=== PATIENT | female | born 1940 | race Caucasian/White ===

== ENCOUNTER 2016-11-30 11:43 | Emergency (ER) | payer OTHER, MEDICARE ==
[2016-11-30 12:01] VITALS: RESP 14
[2016-11-30 13:01] LABS: % IMMATURE GRANULYOCYTES 0.7 % (0.0-1.1); ABSOLUTE IMMATURE GRANULOCYTES 0.13 10^3/uL (0.00-0.10); ADD DIFF? NO; ADD MORPH? NO; ADD SCAN? NO; ATYPICAL LYMPHOCYTE FLAG 0 (0-99); FRAGMENT RBC FLAG 0 (0-99); HEMATOCRIT 37.1 % (38.0-47.0); LEFT SHIFT FLG 0 (0-99); LIPEMIA HEMOLYSIS FLAG 80 (0-99); MEAN CELL HEMOGLOBIN 26.5 pg (27.9-34.1); MEAN CELL HEMOGLOBIN CONCENTR. 32.3 g/dL (32.4-36.7); MEAN CELL VOLUME 81.9 fL (81.5-99.8); MEAN PLATELET VOLUME 11.4 fL (8.7-11.7); PLATELET CLUMPS FLAG 0 (0-99); PLATELET COUNT 324 10^3/uL (150-400); RED BLOOD CELL COUNT 4.53 10^6/uL (4.18-5.33); RED CELL DISTRIBUTION WIDTH 14.8 % (11.5-15.2)
--- NOTE | 2016-11-30 13:13 | EDPHY ---
H & P Stated Complaint: L EYE DROOP SINCE YESTERDAY Time Seen by Provider: 11/30/16 12:00 HPI/ROS: CHIEF COMPLAINT: UTI, left eyelid drooping HISTORY OF PRESENT ILLNESS: The patient is a 76 y/o female arriving from her urologist's office due to UTI and new left eye drooping. She's had intermittent UTIs "for years." She began feeling more weak than normal about 1 week ago. She has associated with intermittent dysuria, vomiting, and fever. She saw her urologist just prior to arrival and was diagnosed with the urinary tract infection. She was placed on an unknown antibiotic. She recently had a urinary tract infection requiring IV antibiotics. Regarding her eye she thinks she stuck a piece of cactus in it. She did not notice the eyelid drooping until her urologist mentioned it this morning. She cannot tell me how long it's been drooping, but says "not long." She is reluctant to talk about her eyelid drooping. She denies trouble swallowing or eating, vision changes, unilateral weakness. REVIEW OF SYSTEMS: Constitutional: see HPI Eyes: No visual changes ENT: No sore throat Respiratory: No cough, no shortness of breath Cardiac: No chest pain Gastrointestinal: see HPI Genitourinary: see HPI Musculoskeletal: No leg pain or swelling Skin: No rash Neurological: see HPI Psychiatric: depression related to 's - Personal History Current Tetanus/Diphtheria Vaccine: No Current Tetanus Diphtheria and Acellular Pertussis (TDAP): No Tetanus Vaccine Date: allergic to tet - Medical/Surgical History PMH: PMH includes: 1. Chronic UTIs. Admitted 10/19/16 for pseudomonas UTI, required Zosyn and PICC line. 2. Hypertension 3. History of PE - Pradaxa 4. Diabetes 5. Hypothyroidism Prior medical records reviewed including admission 10/19/16 for UTI. Hx Asthma: No Hx Chronic Respiratory Disease: No Hx Diabetes: Yes Hx Cardiac Disease: Yes Hx Renal Disease: No Hx Cirrhosis: No Hx Alcoholism: No Hx HIV/AIDS: No Hx Splenectomy or Spleen Trauma: No Other PMH: depression, irreg heart rate, HTN, chronic UTI's, DM, hypothyroidism , HYSTERECTOMY, DVT, PE, MINI-STROKE - Social History Smoking Status: Former smoker Additional Social History: Urologist: Dr. Naidu from stroke 4 years ago. - Physical Exam Exam: General Appearance: Alert, no distress Eyes: Pupils equal and round, no conjunctival pallor or injection, EOMI ENT, Mouth: Mucous membranes moist Neck: Normal inspection Respiratory: Lungs are clear to auscultation Cardiovascular: Regular rate and rhythm Gastrointestinal: Abdomen is soft and non- tender Neurological: A&O, left eyelid droop, cranial nerves otherwise intact, motor 5/ 5 in all extremities, sensory intact to light touch Skin: Warm and dry, no rash Extremities: Nontender, no pedal edema Psychiatric: Flat affect Constitutional: Initial Vital Signs Temperature (C) 36.4 C 11/30/16 11:44 Heart Rate 89 11/30/16 11:44 Respiratory Rate 14 11/30/16 11:44 Blood Pressure 131/83 H 11/30/16 11:44 O2 Sat (%) 95 11/30/16 11:44 O2 Delivery Mode Room Air Allergies/Adverse Reactions: tetanus toxoid, adsorbed Allergy (Intermediate, Verified 10/26/15 12:35) local reaction morphine Allergy (Mild, Verified 10/26/15 12:35) Itching Home Medications: Medication Instructions Recorded DULoxetine [Cymbalta 30 MG (*)] 30 mg PO DAILY 10/19/16 Estrogens,Conjugated [Premarin 0.3 0.3 mg PO DAILY 10/19/16 MG (*)] Hydrocodone/Acetaminophen [[place] 1 each PO BID 10/19/16 5/325 (*)] LORazepam [Ativan (*)] 1 mg PO BID PRN 10/19/16 Levothyroxine [Synthroid 112 mcg 112 mcg PO DAILY06 10/19/16 (*)] Lisinopril [Zestril 40 mg (*)] 40 mg PO DAILY 10/19/16 Potassium Cl [Klor-Con 10 meq (RX)] 10 meq PO DAILY 10/19/16 metFORMIN HCL [Glucophage 500 mg 1,000 mg PO DAILY 10/22/16 (*)] Acetaminophen [Tylenol 325mg (*)] 650 mg PO Q4HRS PRN #0 tab 10/23/16 Medical Decision Making - Diagnostics EKG Interpretation: The 12 lead EKG was interpreted by myself. Sinus rhythm rate 71 with left axis deviation. See hard copy and/or "tracemaster" electronic copy for interpretation. ED Course/Re-evaluation: This patient presents with a new left eyelid droop, with an otherwise normal neurologic exam. This may represent a tiny CVA and will require MRI for further diagnostic evaluation. A CT scan of the brain would be unlikely to find the answer to this new problem. IV established. Labs drawn including CBC, CHEM, troponin. EKG and head MRI ordered. Will not repeat UA as her urologist required a cath to obtain a sample and has already sent it for culture. She reports to the RN that the eyelid droop is chronic for the last 3 years since her facelift. I discussed this with the patient an she has changed her clinical history and now tells me that the left eyelid droop has been ongoing for a few years, sometimes more prominent and sometimes less prominent. She refuses brain MRI, IV antibiotics, and admission. I advised her she may have had a stroke and leaving without further investigation of her symptoms is risky. She understands and now states that this is not a new problem. It is unclear whether she is telling me the truth or simply wants to leave the emergency department. In any case, she is a competent decision maker and clearly understands the risks and benefits of this decision. In addition, I have suggested that she receive IV antibiotics for her urinary tract infection. Her recent urine cultures have been complicated and the infections have required IV antibiotics. She refuses IV antibiotics. She will take oral antibiotics and will await the urine culture. She will follow up with her urologist for her urine culture and continue the antibiotic he prescribed. Return precautions given. Differential Diagnosis: Differential diagnosis includes does not limited to CVA, TIA, intracranial hemorrhage, pyelonephritis, severe sepsis. - Data Points Laboratory Results: Laboratory Results 11/30/16 12:50 11/30/16 12:50 Departure - Departure Disposition: Home, Routine, Self-Care Clinical Impression: left eyelid droop Urinary tract infectious disease Qualifiers: Urinary tract infection type: acute cystitis Hematuria presence: without hematuria Qualifier Code: (N30.00) Acute cystitis without hematuria Condition: Good Instructions: Urinary Tract Infection in Women (ED) Additional Instructions: Take antibiotics prescribed by Dr. Aceves as prescribed. Return to the ED for any worsening of condition. Referrals: Arian Hurtado MD [Primary Care Provider] - As per Instructions Martin Aceves MD [Medical Doctor] - As per Instructions Report Scribed for: Sherrie Cheney Report Scribed by: Izzy Felix Date of Report: 11/30/16 Time of Report: 12:39 Physician Review and Approval Statement: 11/30/16 12:39 Portions of this note were transcribed by a medical laboratory assistant. I personally performed a history, physical exam, medical decision making, and confirmed accuracy of information the transcribed note.
[2016-11-30 13:17] LABS: ANION GAP 12 mEq/L (8-16); CALCIUM 8.8 mg/dL (8.5-10.4); CARBON DIOXIDE 25 mEq/l (22-31); CHLORIDE 97 mEq/L (97-110); GLOMERULAR FILTRATION RATE 54; GLUCOSE 240 mg/dL (70-100); POTASSIUM 4.6 mEq/L (3.5-5.2); SODIUM 134 mEq/L (134-144)
[2016-11-30 13:28] LABS: TROPONIN I < 0.012 ng/mL (0-0.034)
--- NOTE | 2016-11-30 13:29 | CPEKG ---
Heart Rate: 71 RR Interval: 845 P-R Interval: 140 QRSD Interval: 82 QT Interval: 400 QTC Interval: 435 P [place]: 26 QRS [place]: -36 T Wave [place]: 9 EKG Severity - OTHERWISE NORMAL ECG - EKG Impression: SINUS RHYTHM EKG Impression: LEFT AXIS DEVIATION Electronically Signed By: Sherrie Cheney 30-Nov-2016 14:30:09
[2016-11-30 14:00] VITALS: BP 128/78; PULSE 78; TEMP 99; O2SAT 96
== END 2016-11-30 13:59 | disposition home or self-care (01) ==
DX: N30.00 Acute cystitis without hematuria (principal); H02.402 Unspecified ptosis of left eyelid; I10 Essential (primary) hypertension; E11.9 Type 2 diabetes mellitus without complications; Z87.891 Personal history of nicotine dependence

== ENCOUNTER 2016-11-30 20:29 | Inpatient (IN) | payer OTHER, MEDICARE ==
--- NOTE | 2016-11-30 21:17 | EDPHY ---
[id number], dysuria, vomiting and fever. Patient was seen here earlier today after being referred from Dr. Aceves's office with urinary tract infection. She has a history of intermittent UTIs for in the past. She has had increasing weakness for the past week with increasing foul-smelling urine per her daughter. Her urologist mention a left eyelid droop this morning, however per the patient's daughter this is a chronic condition. Patient was seen earlier today by Dr. Cheney and refused admission at that time. Daughter came home this evening and was unable to get her out of bed secondary to generalized weakness. Of note Dr. Aceves disorder current antibiotics and send her urine for culture. It was noted that she had a white count of 19.7 this morning with a left shift. ROS: 10 point Review of Systems is negative except as noted in the HPI. Physical exam: Gen: Awake, Alert, frail-appearing HEENT: Nose: no rhinorrhea Eyes: PERRLA, EOMI Mouth: Dry mucosa Neck: Supple, no JVD Chest: nontender, lungs clear to auscultation Heart: S1, S2 normal, no murmur Abd: Soft, mild suprapubic tenderness to palpation, no guarding Back: no CVA tenderness, no midline tenderness Ext: no edema, non-tender Skin: no rash Neuro: CN II-XII intact, Sensation grossly intact, Strength 5/5 in bilateral upper and lower extremities ED Course: Patient meets criteria for SIRS. He I have ordered a lactic acid and blood cultures. I have noted her laboratory evaluations were earlier today with a white count of 19.8. She is tachycardic at 10:03 a.m. he. She is currently afebrile. 2129 lactic acid noted to be elevated at 3.4. She does meets criteria for severe sepsis. Her blood pressure is appropriate she is mentating appropriately. I have ordered the 30 male L p.o. kg IV bolus. Repeat lactic acid has been ordered. I have ordered 2 g of IV ceftriaxone. I have discussed with Dr. Ying Truong, hospitalist. Plan will be to admit to [facility] for further care and evaluation. - Data Points Laboratory Results: 11/30/16 21:10 VBG Lactic Acid 3.4 H mmol/L (0.7-2.1) General Time Seen by Provider: 11/30/16 20:58 Initial Vital Signs: Initial Vital Signs Temperature (C) 36.8 C 11/30/16 20:34 Heart Rate 102 H 11/30/16 20:34 Respiratory Rate 16 11/30/16 20:34 Blood Pressure 134/73 H 11/30/16 20:34 O2 Sat (%) 95 11/30/16 20:34 O2 Delivery Mode Room Air Allergies/Adverse Reactions: tetanus toxoid, adsorbed Allergy (Intermediate, Verified 10/26/15 12:35) local reaction morphine Allergy (Mild, Verified 10/26/15 12:35) Itching Home Medications: Medication Instructions Recorded DULoxetine [Cymbalta 30 MG (*)] 30 mg PO DAILY 10/19/16 Dabigatran Etexilate Mesyl 150 mg PO BID 10/19/16 [Pradaxa 150 MG (*)] Estrogens,Conjugated [Premarin 0.3 0.3 mg PO DAILY 10/19/16 MG (*)] Hydrocodone/Acetaminophen [[place] 1 each PO BID 10/19/16 5/325 (*)] LORazepam [Ativan (*)] 1 mg PO BID PRN 10/19/16 Levothyroxine [Synthroid 112 mcg 112 mcg PO DAILY06 10/19/16 (*)] Lisinopril [Zestril 40 mg (*)] 40 mg PO DAILY 10/19/16 Potassium Cl [Klor-Con 10 meq (RX)] 10 meq PO DAILY 10/19/16 metFORMIN HCL [Glucophage 500 mg 1,000 mg PO DAILY 10/22/16 (*)] Acetaminophen [Tylenol 325mg (*)] 650 mg PO Q4HRS PRN #0 tab 10/23/16 Alteplase [Cathflo Activase 2 mg 2 mg IVP PRN PRN #0 vial 10/23/16 (*)] Piperacillin/Tazo 4.5 gm/Dex 100 ml IV Q8HRS #0 bag 10/23/16 [Zosyn (Premix)] Departure - Departure Disposition: [facility] Clinical Impression: Urinary tract infectious disease, Sepsis Condition: Fair
[2016-11-30] MEDS ORDERED: NS 1,000 ML BAG *FOR SEPSIS ORDER SET ONLY IV ONE (21:30)
[2016-11-30] MEDS ORDERED: cefTRIAXone 2 GM in D5W 50 ML IV ONE (21:30)
[2016-11-30 22:21] LABS: LACGHOST ORDER
[2016-11-30] MEDS ORDERED: ONDANSETRON DISINTEGRATING 4 MG TAB PO PRN (22:30)
[2016-11-30] MEDS ORDERED: ONDANSETRON 4 MG/2 ML VIAL IVP PRN (22:30)
[2016-11-30] MEDS ORDERED: ACETAMINOPHEN 500 MG TAB PO ONE (22:31)
[2016-11-30] MEDS ORDERED: ACETAMINOPHEN 500 MG TAB ONE (22:32)
[2016-11-30] MEDS ORDERED: D50W 25 GM/50 ML SYR IVP PRN (22:35)
--- NOTE | 2016-12-01 00:25 | US ---
Renal Sonography Clinical History: 68-year-old female inpatient with sepsis and a urinary tract infection. Rule out pe rinephric abscess. Technique: A curvilinear 5 MHz transducer was used to sonographically evaluate the kidneys and the ur inary bladder. Color Doppler was used. Pre- and postvoid imaging was acquired. Comparison Studies: Renal sonography dated September 01, 2014, and CT imaging of the chest (which also i ncluded the kidneys), dated May 24, 2016. Findings: The right kidney measures 9.7 x 4.8 x 5.3 cm, and there is some mild pelvocaliectasis with a mildly prominent right extrarenal pelvis. The right renal cortex is normal, measuring 1.4 cm. Incid ental note is made of adjacent hepatic steatosis. The left kidney measures 10.9 x 7.0 x 4.5 cm, and i nitially there was some mild midpole caliectasis, although this resolved after voiding. There is a le ft extrarenal pelvis observed. The left renal cortical thickness is 1.5 cm. There is no perinephric f luid collection, or solid or cystic renal cortical mass. The urinary bladder is moderately distended, although neither ureteral jet was seen. Incidental note is made of a anterior left-sided urinary mi dder diverticulum. Impression: 1. Mild right pelvocaliectasis and mild prominence of the left ureter, without persistent calyceal di latation (ureteral jets were not seen at the level of the urinary bladder). 2. There is no perinephric abscess. 3. Smoothly-contoured ureter bladder diverticulum.
[2016-12-01] MEDS: INSULIN REGULAR HUMAN 100 UNIT/ML SC SCH ×5 (01:07→20:52)
[2016-12-01] MEDS: NS 1,000 ML IV SCH ×3 (01:18→17:36)
[2016-12-01] MEDS: PIPERACILLIN/TAZO 4.5 GM/DEX 100 ML IV SCH ×5 (01:18→23:28)
[2016-12-01] MEDS ORDERED: HYDROCODONE/APAP 5/325 TAB PO PRN (01:20)
--- NOTE | 2016-12-01 01:25 | PDGENHP ---
History and Physical - Chief Complaint Acute weakness - History of Present Illness Date of admission: 11/30/2016 Primary care provider: Dr. Hurtado Primary infectious Disease: Dr. Huffman Primary neurology: Dr. Aceves HPI: 76-year-old female presents with acute weakness characterized as inability to get out of bed with associated dysuria, vomiting, subjective fever , foul-smelling urine with onset of symptoms approximately 1 week ago. Duration has been persistent thereafter. Her weakness is reportedly worse with activity and intentional movement. She was brought to her urologist's office by her daughter on the day of this presentation, and a urinalysis and urine culture were performed. Based on those results, it was suspected that the patient had a recurrent urinary tract infection. She was then brought to [facility] Department where she refused antibiotics and refused admission. She was brought back to her home, but later in the evening her daughter noted that she was unable to get out of bed and she brought her back to [facility]. At the present time, the patient is unable to provide me with any further history. History Information - Allergies/Home Medication List Allergies/Adverse Reactions: tetanus toxoid, adsorbed Allergy (Intermediate, Verified 10/26/15 12:35) local reaction morphine Allergy (Mild, Verified 10/26/15 12:35) Itching Home Medications: DULoxetine [Cymbalta 30 MG (*)] 30 mg PO DAILY 10/19/16 [Last Taken 11/30/16] Estrogens,Conjugated [Premarin 0.3 MG (*)] 0.3 mg PO DAILY 10/19/16 [Last Taken 11/30/16] Hydrocodone/Acetaminophen [[place] 5/325 (*)] 1 each PO BID 10/19/16 [Last Taken 11/30/16] LORazepam [Ativan (*)] 1 mg PO BID PRN 10/19/16 [Last Taken 10/18/16 18:00] Levothyroxine [Synthroid 112 mcg (*)] 112 mcg PO DAILY06 10/19/16 [Last Taken ] Lisinopril [Zestril 40 mg (*)] 40 mg PO DAILY 10/19/16 [Last Taken 11/30/16] Potassium Cl [Klor-Con 10 meq (RX)] 10 meq PO DAILY 10/19/16 [Last Taken ] metFORMIN HCL [Glucophage 500 mg (*)] 1,000 mg PO DAILY 10/22/16 [Last Taken 05/11] I have personally reviewed and updated: family history, medical history, social history, surgical history - Past Medical History diabetes type 2 (Last hemoglobin A1c 8.2% in January of 2016) Additional medical history: Hypothyroidism, hypertension, pulmonary embolism (, on Pradaxa), chronic UTI (pseudomonal in September 2016, previously Klebsiella and Enterobacter), chronic left eye droop per daughter, vascular dementia, C diff in February 2014 - Surgical History Additional surgical history: Hysterectomy, hernia repair, breast reduction - Family History Additional family history: Patient denies any recent sick family contacts - Social History Smoking Status: Former smoker Alcohol Use: Occasionally Drug Use: None Additional social history: Patient retired, Currently lives with daughter. Review of Systems ROS: 10pt was reviewed & negative except for what was stated in HPI & below Constitutional: Reports: fever, weakness Gastrointestinal: Reports: vomitting Genitourinary: Reports: dysuria, other (Foul-smelling) Physical Exam Temp Pulse Resp BP Pulse Ox 36.6 C 83 14 125/68 H 93 12/01/16 01:20 12/01/16 01:20 12/01/16 01:20 12/01/16 01:20 12/01/16 01:20 Constitutional: no apparent distress, appears nourished, not in pain Eyes: other (Left lid droop, anicteric right) Ears, Nose, Mouth, Throat: hearing normal, other (Tacky mucous membranes) Cardiovascular: regular rate and rhythym, no murmur, rub, or gallop, No edema Respiratory: no respiratory distress, no rales or rhonchi, clear to auscultation Gastrointestinal: normoactive bowel sounds, soft, non-tender abdomen, no palpable masses Genitourinary: no bladder fullness, other (Bladder tenderness, no CVA tenderness ) Skin: warm, normal color, no rashes or abrasions, no fluctuance, no induration, No mottled Neurologic: other (Alert awake oriented times 0), No weakness (Motor strength 5/ 5 bilateral lower extremity), No facial droop Psychiatric: not anxious, poor insight, poor judgement, poor memory, No agitated Lab Data & Imaging Review VBG Lactic Acid 2.5 mmol/L (0.7-2.1) H 11/30/16 23:03 POC Glucose 219 mg/dL (70-100) H 12/01/16 00:21 Visualized and Interpreted EKG results: Yes EKG Interpretation: Positive for: other (Normal sinus rhythm with T-wave inversion in lead 3 and AVF with Q-waves in lead 3) Assessment & Plan Assessment: 76-year-old female presents with severe sepsis secondary to suspected recurrent urinary tract infection Plan: 1. Severe sepsis. Acute, new problem this provider, further workup indicated. Evidenced by leukocytosis plus tachycardia plus clearly identified source of infection plus evidence of end-organ failure notably lactic acidosis, resulting in autonomic dysregulation in the setting of infection -serum lactic acid remains elevated on 2nd draw, continue drawing q.2 hours until clears -order set placed in emergency department -continue IV fluids -broadened IV antibiotics -renal ultrasounds performed to rule out perinephric abscess 2. Suspected recurrent urinary tract infection. Acute, new problem this provider, further workup indicated. Evidenced by reportedly positive urinalysis plus urinary symptoms plus sepsis physiology as outlined above resulting in generalized weakness -obtain outside urinalysis and urine culture from Dr. Aceves office -obtain Infectious Disease consultation given the previous history of resistant organisms -reviewed outside records including discharge summary by Georgina Molina from 10/23 characterizing patient's most recent hospitalization for for quinolone and meropenem resistant pseudomonal UTI, received 14 days of Zosyn therapy, patient also has history of Klebsiella sensitive to Zosyn, history of Enterobacter resistant to Zosyn -place patient on Zosyn 4.5 g q.6 hours and gauge response, if patient unresponsive to this treatment, will add coverage for Enterobacter -discussed patient with Dr. Truong, she has signed out this patient to me at the end of her shift and reports that the ER reports that the patient is stable for med surge 3. Sundowning. Evidence by disorientation and poor memory in the setting of known vascular dementia -patient will have repeat cognitive Assessment by tomorrow's hospitalist and if the patient does have overt comma ongoing acute encephalopathy in the setting of toxic infection, then she will be monitored closely and documented as such 4. Acute metabolic acidosis. Secondary to lactic acid comma in the setting of combination of severe sepsis and hypovolemia, continue IV fluids and checking serum lactic acid levels 5. Diabetes mellitus type 2 with hyperglycemia. Reactive hyperglycemia in the setting of infection, placed on insulin sliding scale and reinitiate metformin tomorrow a.m. if lactic acidosis cleared 6. Hypertension. Chronic, hold patient's FRITZ inhibitor in a.m. given ongoing infection lactic acidosis Diet. Diabetic Prophylaxis. High risk patient, continue on Pradaxa Code status. Do not resuscitate per patient when she was mentating more clearly Disposition. Anticipated discharge uncertain this time, anticipated length stay is greater than 48 hours warranting inpatient admission status for severe sepsis with recurrent urinary tract infection most likely requiring IV antibiotics and Infectious Disease consultation.
[2016-12-01] MEDS: LORazepam 0.5 MG TAB PO PRN ×2 (02:00→19:45)
[2016-12-01] MEDS: traZODone 50 MG TAB PO PRN (04:02)
[2016-12-01] MEDS: MELATONIN 3 MG TAB PO PRN (04:02)
[2016-12-01] MEDS: LEVOTHYROXINE 112 MCG TAB PO SCH (06:27)
[2016-12-01 08:58] LABS: % IMMATURE GRANULYOCYTES 0.4 % (0.0-1.1); ABSOLUTE IMMATURE GRANULOCYTES 0.08 10^3/uL (0.00-0.10); ADD DIFF? NO; ADD MORPH? NO; ADD SCAN? NO; ATYPICAL LYMPHOCYTE FLAG 0 (0-99); FRAGMENT RBC FLAG 0 (0-99); HEMATOCRIT 31.6 % (38.0-47.0); HEMOGLOBIN 10.2 g/dL (12.6-16.3); LEFT SHIFT FLG 0 (0-99); LIPEMIA HEMOLYSIS FLAG 80 (0-99); MEAN CELL HEMOGLOBIN 26.6 pg (27.9-34.1); MEAN CELL HEMOGLOBIN CONCENTR. 32.3 g/dL (32.4-36.7); MEAN CELL VOLUME 82.3 fL (81.5-99.8); MEAN PLATELET VOLUME 11.4 fL (8.7-11.7); PLATELET CLUMPS FLAG 0 (0-99); PLATELET COUNT 256 10^3/uL (150-400); RED BLOOD CELL COUNT 3.84 10^6/uL (4.18-5.33)
[2016-12-01] MEDS: DULoxetine 30 MG CAP PO SCH (08:58)
[2016-12-01] MEDS ORDERED: metFORMIN HCL 500 MG TAB PO SCH (09:00)
[2016-12-01] MEDS: ESTROGENS,CONJUGATED 0.3 MG TAB PO SCH (09:06)
[2016-12-01 09:25] LABS: ALANINE AMINOTRANSFERASE 19 IU/L (9-52); ALBUMIN 2.9 g/dL (3.5-5.0); ALKALINE PHOSPHATASE 84 IU/L (38-126); ANION GAP 10 mEq/L (8-16); ASPARTATE AMINOTRANSFERASE 12 IU/L (14-46); BILIRUBIN,TOTAL 0.8 mg/dL (0.1-1.4); CALCIUM 7.9 mg/dL (8.5-10.4); CARBON DIOXIDE 23 mEq/l (22-31); CHLORIDE 105 mEq/L (97-110); GLOMERULAR FILTRATION RATE 54; GLUCOSE 202 mg/dL (70-100); MAGNESIUM 1.3 mg/dL (1.6-2.3); POTASSIUM 4.2 mEq/L (3.5-5.2); SODIUM 138 mEq/L (134-144); TOTAL PROTEIN 5.9 g/dL (6.3-8.2)
--- NOTE | 2016-12-01 12:42 | HOSPPROG ---
Hospitalist Progress Note Assessment/Plan: ASSESSMENT/PLAN: # sepsis due to UTI - no pressors needed # urinary tract infection, recurrent, multiple resistant organisms in the past - recheck urine culture knowing that she has already received Zosyn - continue empiric Zosyn - had planned in outpatient cysto, is currently declining this - has ureter/bladder diverticulum - ID consult # history of sundowning - she is clear today and understands her medical care # DM2 - hyperglycemic; follow closely # anemia - relatively chronic # hx PE - she is off anticoagulation per her report # htn - controlled, holding lisinopril for now # dvt ppx - lovenox # DNR SUBJECTIVE: Feels slightly stronger today OBJECTIVE: Vitals reviewed Comfortable, no acute distress Regular rate and rhythm, no murmurs rubs or gallops No respiratory distress, lungs clear to auscultation bilaterally; no wheezes rales or rhonchi Abdomen with normal bowel sounds, soft, mild suprapubic tenderness to palpation , nondistended LABORATORY DATA: White count [id number] IMAGING: Ultrasound reviewed, ureters/bladder diverticulum MICROBIOLOGY: Old micro reviewed, multiple organisms with different resistance patterns Objective: Vital Signs Temp Pulse Resp BP Pulse Ox 37.3 C 86 16 115/60 92 12/01/16 08:00 12/01/16 08:00 12/01/16 08:00 12/01/16 08:00 12/01/16 08:00 Laboratory Results 12/01/16 08:47 12/01/16 08:47 11/30/16 12/01/16 12/02/16 05:59 05:59 05:59 Intake Total 1999 Balance 1999 ICD10 Worksheet Patient Problems: Problems Problem Status Diagnosed Fall Acute Sepsis Acute Urinary tract infectious disease Acute
--- NOTE | 2016-12-01 14:20 | GCON ---
[f rep st] CONSULTATION INFECTIOUS DISEASE CONSULTATION DATE OF CONSULTATION: 12/01/2016 REFERRING PHYSICIAN: Simon Cornell MD REASON FOR CONSULTATION: Recurrent urinary tract infection. CHIEF COMPLAINT: Dysuria and increased urinary frequency. HISTORY OF PRESENT ILLNESS: This 76-year-old, female with a past medical history significant for recurrent urinary tract infections, hypothyroidism, and diabetes mellitus type 2, hyp ertension, pulmonary embolism, chronic left eye droop, vascular dementia, history of C difficile in A pril 2013. She recently had urinary infection as of September 2016 with E coli and Pseudomonas, which was resistant to Levaquin and meropenem. She was treated with Zosyn until November 03. She did o darwin although she states she did not really have a lot of improvement in her symptoms. She has been home now for almost 1 month, and had an acute onset of weakness developing yesterday wit h fevers and shaking chills yesterday. She had increase in urinary frequency and ongoing dysuria she saw Dr. Aceves, her urologist, yesterday who apparently performed a urinalysis and urine culture. The results of those are not available to this point. She was placed on empiric Zosyn. She had a l eukocytosis of 19,000, which is minimally improved down to 8000 today. She continues to feel weak an d not very well. She apparently had a procedure on December 12 for a cystoscopy and possible bladder biopsy. Infectious Disease is now consulted for further evaluation and opinion. REVIEW OF SYSTEMS: GENERAL: Fevers and shaking chills. HEAD: No headache. EYES: No change in vi isabell. ENT: No sore throat, difficulty swallowing, ear pain or drainage. CARDIOVASCULAR: Denies an y chest pain or rapid heartbeat. RESPIRATORY: Denies any increasing shortness of breath or producti ve cough. ABDOMEN: Denies any nausea, vomiting, abdominal pain, or diarrhea. She usually has some constipation, but denies any back pain, flank pain. : Has urinary frequency and dysuria. MUSCULO SKELETAL: Denies any joint pains or muscle aches. SKIN: Denies any rashes. Rest of 10-point review of systems is negative or as above. PAST MEDICAL HISTORY: Significant for hypertension, pulmonary embolism, hypothyroidism chronic recur rent urinary tract infections, diabetes mellitus type 2, chronic left eye droop, vascular dementia, C HF in February 2014. PAST SURGICAL HISTORY: Significant for hysterectomy, hernia repair, breast reduction. FAMILY HISTORY: Significant for diabetes mellitus. SOCIAL HISTORY: She is a former smoker. She drinks alcohol occasionally. She lives with her daught er and son-in-law. She is a retired nurse. ALLERGIES: Tetanus toxoid and morphine. PHYSICAL EXAMINATION: VITAL SIGNS: Temperature current is 37.3, pulse is 86, blood pressure is 115/ 60, respiratory rate 16, saturation 92% on room air. GENERAL: Patient is resting in bed in no acute respiratory distress. Awake, alert, oriented x3. HEENT: Head normocephalic, atraumatic. Eyes are without conjunctival injection or petechiae. Oropharynx is clear. CARDIOVASCULAR: S1, S2. Regula r rate and rhythm. RESPIRATORY: Clear to auscultation bilaterally. No rhonchi appreciated. ABDOME N: Positive bowel sounds in all quadrants. Soft, nontender, and nondistended. She has some mild te nderness on abdominal palpation. No guarding or rebound. No flank pain. MUSCULOSKELETAL: No obvio us joint effusions or pain on palpation of the joints. SKIN: No obvious rashes. LABORATORY DATA: White cell count is 18.8, hemoglobin 10.2, platelets are 256, neutrophil count is 8 1.4. Lactic acid is 2.3. Sodium 138, potassium 4.2, chloride 105, bicarbonate 23, BUN is 9, creatin ine is 1.0. AST 12, ALT 19, alkaline phosphatase 84, total bilirubin 0.8. Microbiology: Blood cult ures x2 sets are pending. Urine culture analysis by Dr. Aceves's office is pending. Abdominal and pelvic ultrasound shows mild right pelvocaliectasis and mild prominence of the left ure ter without persistent calyceal dilatation. No perinephric abscess. Normally contoured ureter. Osvaldo dder diverticulum. ASSESSMENT: 1. Sepsis, likely secondary to urinary tract infection. 2. Leukocytosis. PLAN: 1. We will repeat a urinalysis and culture here, as well, understanding that there is some limitatio n in addition because she has already received a couple doses of antibiotics. 2. We will follow up on Dr. Aceves's culture results, as well, to better direct antimicrobial ther apy. 3. Care was coordinated with the hospitalist team and her daughter, who called, concerned that she g et better and was interested in having her urinary her urologic procedure moved up sooner. The patie nt currently does not want any procedures done, at this point in time, because she feels really weak and not well, needs at least a few days of antibiotics before any procedure could be attem pted on her at the very least. 4. Would also like to make sure that her cultures are adequately addressed with her antibiotics. 5. We will have to coordinate care with her urology team, as well, going forward. These recommendations and coordination of care were discussed with the patient's daughter, who unders tands, and is in agreement to the plan of care the patient. The patient also would not like to do an y procedures for now. Care was coordinated with the hospitalist team and her patient's RN. Thank you very much for the opportunity to care for your patient in consultation. /[id number]/MODL
[2016-12-01 16:09] LABS: COLOR YELLOW; LEUKOCYTE ESTERASE,URINE 3+ (NEGATIVE); NITRITE,URINE NEGATIVE (NEGATIVE)
[2016-12-01 16:12] LABS: BACTERIA TRACE /hpf (NONE SEEN); MUCUS TRACE /lpf (NONE-1+); WBC,URINE 50-182 /hpf (0-3)
[2016-12-01] MEDS ORDERED: BISACODYL 10 MG SUPP PR PRN (17:44)
[2016-12-01] MEDS ORDERED: MAGNESIUM HYDROXIDE 30 ML UDCUP PO PRN (17:44)
[2016-12-01] MEDS ORDERED: POLYETHYLENE GLYCOL 3350 17 GM PKT PO PRN (17:44)
[2016-12-01] MEDS ORDERED: LACTULOSE 20 GM/30 ML UDCUP PO PRN (17:44)
[2016-12-01] MEDS: SENNOSIDES/DOCUSATE SODIUM TAB PO SCH (20:52)
[2016-12-01] MEDS: HYDROCODONE/APAP 5/325 TAB PO PRN (20:53)
[2016-12-02] MEDS: NS 1,000 ML IV SCH ×4 (01:22→23:18)
[2016-12-02] MEDS: traZODone 50 MG TAB PO PRN ×2 (02:18→20:55)
[2016-12-02] MEDS: ACETAMINOPHEN 325 MG TAB PO PRN ×2 (02:19→20:55)
[2016-12-02] MEDS: LEVOTHYROXINE 112 MCG TAB PO SCH (05:42)
[2016-12-02] MEDS: PIPERACILLIN/TAZO 4.5 GM/DEX 100 ML IV SCH ×4 (05:42→23:16)
[2016-12-02] MEDS: ENOXAPARIN 40 MG/0.4 ML SYR SC SCH (08:44)
[2016-12-02] MEDS: DULoxetine 30 MG CAP PO SCH (08:45)
[2016-12-02] MEDS: ESTROGENS,CONJUGATED 0.3 MG TAB PO SCH (08:45)
[2016-12-02] MEDS: SENNOSIDES/DOCUSATE SODIUM TAB PO SCH ×2 (08:45→20:54)
[2016-12-02 08:46] LABS: % IMMATURE GRANULYOCYTES 0.4 % (0.0-1.1); ABSOLUTE IMMATURE GRANULOCYTES 0.05 10^3/uL (0.00-0.10); ADD DIFF? NO; ADD MORPH? NO; ADD SCAN? NO; ATYPICAL LYMPHOCYTE FLAG 0 (0-99); FRAGMENT RBC FLAG 0 (0-99); HEMATOCRIT 30.3 % (38.0-47.0); HEMOGLOBIN 9.4 g/dL (12.6-16.3); LEFT SHIFT FLG 0 (0-99); LIPEMIA HEMOLYSIS FLAG 80 (0-99); MEAN CELL HEMOGLOBIN 26.3 pg (27.9-34.1); MEAN CELL VOLUME 84.6 fL (81.5-99.8); MEAN PLATELET VOLUME 11.7 fL (8.7-11.7); PLATELET CLUMPS FLAG 10 (0-99); PLATELET COUNT 248 10^3/uL (150-400); RED BLOOD CELL COUNT 3.58 10^6/uL (4.18-5.33); RED CELL DISTRIBUTION WIDTH 15.2 % (11.5-15.2)
[2016-12-02] MEDS: HYDROCODONE/APAP 5/325 TAB PO PRN ×2 (08:47→23:16)
[2016-12-02] MEDS: INSULIN REGULAR HUMAN 100 UNIT/ML SC SCH ×4 (08:48→20:55)
--- NOTE | 2016-12-02 11:33 | HOSPPROG ---
Hospitalist Progress Note Assessment/Plan: ASSESSMENT/PLAN: # sepsis due to UTI - no pressors needed # urinary tract infection, recurrent, multiple resistant organisms in the past - UCx as outpatient shows e. coli - sens pending - urine culture rechecked knowing that she has already received Zosyn - continue empiric Zosyn - has ureter/bladder diverticulum - need to talk to Dr Aceves on Saturday to understand his outpatient plans for a cysto # history of - she is clear today and understands her medical care # DM2 - hyperglycemic; - SSI, start low dose lantus (metformin at home) # anemia - relatively chronic # hx PE - she is off anticoagulation per her report # htn - controlled, holding lisinopril for now # dvt ppx - lovenox # DNR SUBJECTIVE: ongoing abd pain but feels better overall OBJECTIVE: Vitals reviewed Comfortable, no acute distress Regular rate and rhythm, no murmurs rubs or gallops No respiratory distress, lungs clear to auscultation bilaterally; no wheezes rales or rhonchi Abdomen with normal bowel sounds, soft, mild suprapubic tenderness to palpation , nondistended LABORATORY DATA: White count [id number] IMAGING: MICROBIOLOGY: Old micro reviewed, multiple organisms with different resistance patterns Discussed with her brother, Dr Sawyer Objective: Vital Signs Temp Pulse Resp BP Pulse Ox 37.1 C 75 14 94/56 L 91 L 12/02/16 08:00 12/02/16 08:00 12/02/16 08:00 12/02/16 08:00 12/02/16 08:00 Laboratory Results 12/02/16 08:25 12/01/16 08:47 12/01/16 12/02/16 12/03/16 05:59 05:59 05:59 Intake Total 1999 2149 Output Total 250 Balance 1999 1900 ICD10 Worksheet Patient Problems: Problems Problem Status Diagnosed Fall Acute Sepsis Acute Urinary tract infectious disease Acute
[2016-12-02] MEDS: INSULIN GLARGINE 100 UNITS/ML SYRINGE SC SCH (11:53)
--- NOTE | 2016-12-02 13:26 | PCMIDPN ---
Assessment/Plan: Assessment/Plan: 1. Sepsis secondary to UTI: - Reviewed records on [facility]: urine cx from 11/30/16 showing E. coli so far - On zosyn. Wbc trending down. less dysuria. - blood cx ngtd - urine cx from [facility] after antbx given,--ngtd -continue current management for now. -will coordinate with Dr. Aceves tomorrow regarding further urologic management. - i called daughter and updated her and addressed questions. . - care coordinated with hospitalist team constance donnelly Subjective: Afebrile. Feels only a little better today. Less dysuria. No abd pain,flank pain , or back pain. Denies sob. Hasn't moved bowels. tearful intermittently during conversation. Objective: Vital Signs Temp Pulse Resp BP Pulse Ox 36.9 C 96 16 114/63 95 12/02/16 11:37 12/02/16 11:37 12/02/16 11:37 12/02/16 11:37 12/02/16 11:37 Laboratory Results 12/02/16 08:25 12/01/16 08:47 12/01/16 12/02/16 12/03/16 05:59 05:59 05:59 Intake Total 1999 2149 Output Total 250 Balance 1999 190 - Physical Exam General Appearance: alert, no apparent distress Respiratory: lungs clear Cardiac/Chest: regular rate, rhythm Extremities: No swelling Abdomen: normal bowel sounds, non-tender, soft, distended, other (non tender, no guarding) Skin: No erythema - Time Spent With Patient Time Spent with Patient: greater than 35 minutes Time Spent with Patient: Greater than 35 minutes spent on this patients care, greater than 50% of time spent counseling, educating, and coordinating care regarding the above mentioned plan. ICD10 Worksheet Patient Problems: Problems Problem Status Diagnosed Fall Acute Sepsis Acute Urinary tract infectious disease Acute
[2016-12-02] MEDS: LORazepam 0.5 MG TAB PO PRN (19:12)
[2016-12-03] MEDS: ACETAMINOPHEN 325 MG TAB PO PRN (04:35)
[2016-12-03] MEDS: LEVOTHYROXINE 112 MCG TAB PO SCH (05:04)
[2016-12-03] MEDS: PIPERACILLIN/TAZO 4.5 GM/DEX 100 ML IV SCH ×2 (05:04→11:04)
[2016-12-03 05:58] LABS: % IMMATURE GRANULYOCYTES 0.4 % (0.0-1.1); ABSOLUTE IMMATURE GRANULOCYTES 0.05 10^3/uL (0.00-0.10); ADD DIFF? NO; ADD MORPH? NO; ADD SCAN? NO; ATYPICAL LYMPHOCYTE FLAG 0 (0-99); FRAGMENT RBC FLAG 0 (0-99); HEMATOCRIT 28.7 % (38.0-47.0); HEMOGLOBIN 8.8 g/dL (12.6-16.3); LEFT SHIFT FLG 0 (0-99); LIPEMIA HEMOLYSIS FLAG 80 (0-99); MEAN CELL HEMOGLOBIN 26.6 pg (27.9-34.1); MEAN CELL HEMOGLOBIN CONCENTR. 30.7 g/dL (32.4-36.7); MEAN CELL VOLUME 86.7 fL (81.5-99.8); MEAN PLATELET VOLUME 11.8 fL (8.7-11.7); PLATELET CLUMPS FLAG 10 (0-99); PLATELET COUNT 235 10^3/uL (150-400); RED BLOOD CELL COUNT 3.31 10^6/uL (4.18-5.33); RED CELL DISTRIBUTION WIDTH 15.5 % (11.5-15.2)
[2016-12-03] MEDS: NS 1,000 ML IV SCH (06:35)
[2016-12-03] MEDS: INSULIN REGULAR HUMAN 100 UNIT/ML SC SCH ×4 (08:24→21:16)
[2016-12-03] MEDS: SENNOSIDES/DOCUSATE SODIUM TAB PO SCH ×2 (08:49→21:07)
[2016-12-03] MEDS: DULoxetine 30 MG CAP PO SCH (08:49)
[2016-12-03] MEDS: HYDROCODONE/APAP 5/325 TAB PO PRN ×2 (08:49→21:15)
[2016-12-03] MEDS: ESTROGENS,CONJUGATED 0.3 MG TAB PO SCH (08:49)
[2016-12-03] MEDS: ENOXAPARIN 40 MG/0.4 ML SYR SC SCH (08:50)
--- NOTE | 2016-12-03 08:50 | HOSPPROG ---
Hospitalist Progress Note Assessment/Plan: #Severe sepsis: resolved #Recurrent UTI -h/o E Coli resistant to Cipro. Appreciate ID consultation. Change to Ancef today. He will talk with Dr. Aceves to see if cystoscopy can be done in hosp -currently on Zosyn. FU cultures #Leukocytosis: improved with IV abx #Uncontrolled DM -cont glargine and SSI #Lactic acidosis -due to sepsis. Now resolved #Hypothyroidism -LT4 #Depression: cont home meds. Spiritual consult today #Diet: diabetic #DVT ppx: LMWH #Disp: warrant inpatient admission with UTI, IV abx Subjective: very down today. No energy Objective: Vital Signs Temp Pulse Resp BP Pulse Ox 36.5 C 83 16 113/71 92 12/03/16 08:00 12/03/16 08:00 12/03/16 08:00 12/03/16 08:00 12/03/16 08:00 Laboratory Results 12/03/16 05:09 12/01/16 08:47 12/02/16 12/03/16 12/04/16 05:59 05:59 05:59 Intake Total 2150 1850 Output Total 250 Balance 1900 1850 - Physical Exam Constitutional: chronically ill appearing Eyes: PERRL Ears, Nose, Mouth, Throat: moist mucous membranes Cardiovascular: regular rate and rhythym, no murmur, rub, or gallop Respiratory: no respiratory distress, no rales or rhonchi Gastrointestinal: normoactive bowel sounds, soft, non-tender abdomen, no palpable masses Genitourinary: no bladder fullness, no bladder tenderness Skin: warm Musculoskeletal: full muscle strength Neurologic: CN II-XII Intact Psychiatric: depressed, flat affect ICD10 Worksheet Patient Problems: Problems Problem Status Diagnosed Fall Acute Sepsis Acute Urinary tract infectious disease Acute
[2016-12-03] MEDS: INSULIN GLARGINE 100 UNITS/ML SYRINGE SC SCH (09:00)
--- NOTE | 2016-12-03 14:42 | PCMIDPN ---
Assessment/Plan: Assessment/Plan: * Sepsis likely of urinary etiology: Urine culture obtained prior to admission shows growth of E coli which is resistant to ciprofloxacin, otherwise broadly susceptible. Will change Zosyn to cefazolin. Will review with Dr. Aceves and see if cystoscopy can be performed during her hospitalization as this was scheduled for next week. Urine and blood cultures at [facility] are both negative. 12/03/16 14:39 Subjective: Patient continues to feel poorly. Complains of nausea. No change in baseline urinary symptoms. Objective: Vital Signs Temp Pulse Resp BP Pulse Ox 36.9 C 98 18 99/63 L 89 L 12/03/16 11:50 12/03/16 11:50 12/03/16 11:50 12/03/16 11:50 12/03/16 11:50 Laboratory Results 12/03/16 05:09 12/01/16 08:47 12/02/16 12/03/16 12/04/16 05:59 05:59 05:59 Intake Total 2150 1850 Output Total 250 Balance 1900 1850 Urine culture from [facility] showing growth of E coli which is resistant to fluoroquinolones but otherwise broadly susceptible Blood and urine cultures at [facility] no growth - Physical Exam General Appearance: alert, no apparent distress EENT: pharynx normal, No scleral icterus Respiratory: lungs clear, No respiratory distress Cardiac/Chest: regular rate, rhythm Abdomen: non-tender, No distended Neuro/Psych: depressed affect ICD10 Worksheet Patient Problems: Problems Problem Status Diagnosed Fall Acute Sepsis Acute Urinary tract infectious disease Acute
[2016-12-03] MEDS: LORazepam 0.5 MG TAB PO PRN (17:20)
[2016-12-03] MEDS: traZODone 50 MG TAB PO PRN (21:15)
[2016-12-03] MEDS: MELATONIN 3 MG TAB PO PRN (21:16)
[2016-12-04] MEDS: LORazepam 0.5 MG TAB PO PRN ×2 (02:31→12:02)
[2016-12-04 05:58] LABS: ANION GAP 10 mEq/L (8-16); CALCIUM 7.1 mg/dL (8.5-10.4); CARBON DIOXIDE 24 mEq/l (22-31); CHLORIDE 108 mEq/L (97-110); CREATININE 0.9 mg/dL (0.6-1.0); GLOMERULAR FILTRATION RATE > 60; GLUCOSE 100 mg/dL (70-100); POTASSIUM 4.1 mEq/L (3.5-5.2); SODIUM 142 mEq/L (134-144)
--- NOTE | 2016-12-04 08:36 | HOSPPROG ---
Hospitalist Progress Note Assessment/Plan: #Severe sepsis: resolved #Recurrent UTI -E Coli resistant to Cipro on culture prior to admiison Appreciate ID consultation. - She did not tolerate Ancef today, so start CTX. <50K yeast on culture here; not likely contributing to acute infection -Dr. Aceves to perfrom cystoscopy tomorrow. Send bx for AFB, culture -currently on Zosyn. FU cultures #Leukocytosis: improved with IV abx #Uncontrolled DM -cont glargine and SSI #Lactic acidosis -due to sepsis. Now resolved #Hypothyroidism -LT4 #Depression: cont home meds. She states takes PRN Cymbalta; unusual dose. Will not dose PRN #Chronic pain: due to OA. Will resume home dosagel not increasing here #Diet: diabetic #DVT ppx: LMWH #Disp: warrant inpatient admission with UTI, IV abx Subjective: nauseated with ancef last night Objective: Vital Signs Temp Pulse Resp BP Pulse Ox 36.6 C 95 16 120/86 H 93 12/04/16 07:35 12/04/16 07:35 12/04/16 07:35 12/04/16 07:35 12/04/16 07:35 Laboratory Results 12/03/16 05:09 12/04/16 04:37 12/03/16 12/04/16 12/05/16 05:59 05:59 05:59 Intake Total 1850 520 Output Total 4 Balance 1850 516 - Physical Exam Constitutional: chronically ill appearing Eyes: PERRL Ears, Nose, Mouth, Throat: moist mucous membranes, hearing normal Cardiovascular: regular rate and rhythym, no murmur, rub, or gallop Respiratory: no respiratory distress, no rales or rhonchi Gastrointestinal: normoactive bowel sounds, soft, non-tender abdomen, no palpable masses (no TTP) Genitourinary: no bladder fullness, no bladder tenderness Skin: warm Musculoskeletal: full muscle strength Neurologic: AAOx3 Psychiatric: interacting appropriately ICD10 Worksheet Patient Problems: Problems Problem Status Diagnosed Fall Acute Sepsis Acute Urinary tract infectious disease Acute
[2016-12-04] MEDS: DULoxetine 30 MG CAP PO SCH (08:44)
[2016-12-04] MEDS: ESTROGENS,CONJUGATED 0.3 MG TAB PO SCH (08:45)
[2016-12-04] MEDS: LEVOTHYROXINE 112 MCG TAB PO SCH (08:45)
[2016-12-04] MEDS: INSULIN REGULAR HUMAN 100 UNIT/ML SC SCH ×4 (08:46→21:54)
[2016-12-04] MEDS: ENOXAPARIN 40 MG/0.4 ML SYR SC SCH (08:46)
[2016-12-04] MEDS: HYDROCODONE/APAP 5/325 TAB PO PRN (08:50)
[2016-12-04] MEDS: INSULIN GLARGINE 100 UNITS/ML SYRINGE SC SCH (08:52)
[2016-12-04] MEDS: SENNOSIDES/DOCUSATE SODIUM TAB PO SCH ×2 (16:22→21:54)
--- NOTE | 2016-12-04 17:58 | PCMIDPN ---
Assessment/Plan: Assessment/Plan: * Sepsis likely of urinary etiology: Urine culture obtained prior to admission shows growth of E coli which is resistant to ciprofloxacin, otherwise broadly susceptible. Poor tolerance of cefazolin due to nausea. Will therefore change to ceftriaxone 1 g IV daily. Urine culture at [facility] shows growth of 30-40 K colony-forming units of yeast. Doubt actively contributing to current presentation. Patient will undergo cystoscopy tomorrow to further assess bladder appearance. If inflammatory membrane similar to that seen previously present, will sent for pathologic evaluation as well as AFB smear and culture. Will provide fluconazole 200 mg IV x1 given anticipated cystoscopy. Findings and plan reviewed with patient and Dr. Aceves. 12/04/16 17:55 Subjective: Patient feels clinically improved. Nausea with cefazolin. Objective: Vital Signs Temp Pulse Resp BP Pulse Ox 36.6 C 100 16 111/66 94 12/04/16 16:00 12/04/16 16:00 12/04/16 16:00 12/04/16 16:00 12/04/16 16:00 Laboratory Results 12/03/16 05:09 12/04/16 04:37 12/03/16 12/04/16 12/05/16 05:59 05:59 05:59 Intake Total 1850 520 Output Total 4 Balance 1850 516 Cefazolin held due to nausea Urine culture with growth of 30-40 K CFU yeast Blood cultures no growth - Physical Exam General Appearance: alert, no apparent distress EENT: No scleral icterus Back: No CVA tenderness - Time Spent With Patient Time Spent with Patient: greater than 25 minutes Time Spent with Patient: Greater than 25 minutes spent on this patients care, greater than 50% of time spent counseling, educating, and coordinating care regarding the above mentioned plan. ICD10 Worksheet Patient Problems: Problems Problem Status Diagnosed Fall Acute Sepsis Acute Urinary tract infectious disease Acute
[2016-12-05] MEDS: HYDROCODONE/APAP 5/325 TAB PO PRN ×2 (01:06→22:54)
[2016-12-05] MEDS: LORazepam 0.5 MG TAB PO PRN (03:42)
[2016-12-05] MEDS ORDERED: FLUCONAZOLE/NaCl 100 ML IV ONE (07:00)
[2016-12-05] MEDS: INSULIN REGULAR HUMAN 100 UNIT/ML SC SCH ×4 (07:51→21:26)
--- NOTE | 2016-12-05 08:27 | HOSPPROG ---
Hospitalist Progress Note Assessment/Plan: #Severe sepsis: resolved #Recurrent UTI -E Coli resistant to Cipro on culture prior to admiison Appreciate ID consultation. - She did not tolerate Ancef, so changed to CTX. <50K yeast on culture here; not likely contributing to acute infection -Dr. Aceves did transurethral debridement today; biopsy sent for pathology -plan per Dr. Huffman is to given CTX tomorrow and then transition to oral and FU with him #Leukocytosis: improved with IV abx #Uncontrolled DM -cont glargine and SSI #Lactic acidosis -due to sepsis. Now resolved #Hypothyroidism -LT4 #Depression: cont home meds. She states takes PRN Cymbalta; unusual dose. Will not dose PRN #Chronic pain: due to OA. Will resume home dosagel not increasing here #Diet: diabetic #DVT ppx: LMWH #Disp: if stable tomorrow, then will DC on oral abx Subjective: she is tired and joints hurt Objective: Vital Signs Temp Pulse Resp BP Pulse Ox 36.7 C 83 18 117/94 H 94 12/05/16 07:42 12/05/16 07:42 12/05/16 07:42 12/05/16 07:42 12/05/16 07:42 Laboratory Results 12/03/16 05:09 12/04/16 04:37 12/04/16 12/05/16 12/06/16 05:59 05:59 05:59 Intake Total 520 Output Total 4 Balance 516 - Physical Exam Constitutional: no apparent distress Eyes: PERRL Ears, Nose, Mouth, Throat: moist mucous membranes Cardiovascular: regular rate and rhythym, no murmur, rub, or gallop Respiratory: no respiratory distress Gastrointestinal: normoactive bowel sounds, soft, non-tender abdomen Genitourinary: no bladder fullness Skin: warm Musculoskeletal: full muscle strength Neurologic: AAOx3 Psychiatric: depressed, flat affect ICD10 Worksheet Patient Problems: Problems Problem Status Diagnosed Fall Acute Sepsis Acute Urinary tract infectious disease Acute
[2016-12-05] MEDS: ACETAMINOPHEN 325 MG TAB PO PRN (08:33)
[2016-12-05 09:17] LABS: HEMATOCRIT 31.1 % (38.0-47.0); HEMOGLOBIN 9.7 g/dL (12.6-16.3); MEAN CELL HEMOGLOBIN CONCENTR. 31.2 g/dL (32.4-36.7); MEAN CELL VOLUME 83.4 fL (81.5-99.8); RED BLOOD CELL COUNT 3.73 10^6/uL (4.18-5.33); RED CELL DISTRIBUTION WIDTH 15.9 % (11.5-15.2)
[2016-12-05 09:45] LABS: ANION GAP 9 mEq/L (8-16); CALCIUM 7.4 mg/dL (8.5-10.4); CARBON DIOXIDE 25 mEq/l (22-31); CHLORIDE 108 mEq/L (97-110); CREATININE 0.9 mg/dL (0.6-1.0); GLOMERULAR FILTRATION RATE > 60; GLUCOSE 99 mg/dL (70-100); POTASSIUM 3.9 mEq/L (3.5-5.2); SODIUM 142 mEq/L (134-144)
--- NOTE | 2016-12-05 11:56 | PCMIDPN ---
Assessment/Plan: Assessment/Plan: * Sepsis likely of urinary etiology: Clinically improved with antibiotic therapy. Continue ceftriaxone with plans for 24 hours of IV therapy post cystoscopy which will be performed later today. Subsequently will transition to oral cefuroxime which she has tolerated previously to complete her course of therapy. Await cystoscopy findings. Fluconazole given x1 today given yeast in urine with anticipated instrumentation. 12/05/16 11:53 Subjective: Patient hurts all over. Frustrated with being NPO and problematic IV access. Scheduled for cystoscopy later today. Objective: Vital Signs Temp Pulse Resp BP Pulse Ox 36.7 C 77 18 115/63 94 12/05/16 07:42 12/05/16 11:42 12/05/16 11:42 12/05/16 11:42 12/05/16 11:42 Laboratory Results 12/05/16 08:46 12/05/16 08:46 12/04/16 12/05/16 12/06/16 05:59 05:59 05:59 Intake Total 520 Output Total 4 Balance 516 Ceftriaxone # 2 (antibiotics # 5) - Physical Exam General Appearance: alert, no apparent distress EENT: pharynx normal, No scleral icterus Abdomen: non-tender, No distended Back: No CVA tenderness ICD10 Worksheet Patient Problems: Problems Problem Status Diagnosed Fall Acute Sepsis Acute Urinary tract infectious disease Acute
[2016-12-05] MEDS ORDERED: DEXAMETHASONE 4 MG/ML VIAL ONE (12:33)
[2016-12-05] MEDS ORDERED: LIDOCAINE 2% 100 MG/5 ML SYR IVP ONE (12:33)
[2016-12-05] MEDS ORDERED: ONDANSETRON 4 MG/2 ML VIAL ONE (12:33)
[2016-12-05] MEDS ORDERED: fentaNYL 100 MCG/2 ML INJ ONE ×2 (12:34→15:54)
[2016-12-05] MEDS ORDERED: PROPOFOL 200 MG/20 ML VIAL ONE (12:34)
[2016-12-05] MEDS ORDERED: MIDAZOLAM 2 MG/2 ML VIAL ONE (14:11)
[2016-12-05] MEDS ORDERED: ceFAZolin 1 GM VIAL ONE (14:29)
[2016-12-05] MEDS ORDERED: LABETALOL HCL 5 MG/ML 20 ML MDV ONE ×2 (14:52)
--- NOTE | 2016-12-05 15:21 | POSTOPPROG ---
Post Op Note Date of Operation: 12/05/16 Surgeon: Martin Aceves Pre-op Diagnosis: rec UTi, bladder erythema Post-op Diagnosis: same Procedure: TURBT Findings: [id number] Inf/Abcess present in the surg proc area at time of surgery?: Yes
[2016-12-05] MEDS ORDERED: HYDROmorphONE/DILAUDID 1 MG/ML SYR ONE (15:54)
[2016-12-05] MEDS: ENOXAPARIN 40 MG/0.4 ML SYR SC SCH (16:05)
--- NOTE | 2016-12-05 16:07 | GOP ---
[f rep st] OPERATIVE REPORT DATE OF OPERATION: 12/05/2016 SURGEON: Elvis Aceves MD ANESTHESIA: General. PREOPERATIVE DIAGNOSIS: Chronic urinary tract infection and bladder erythema. POSTOPERATIVE DIAGNOSIS: Chronic urinary tract infection and bladder erythema. PROCEDURE PERFORMED: Transurethral debridement of biofilm from the bladder and transurethral resecti on of erythematous areas. FINDINGS: SPECIMENS: AFB, urine culture, and tissue pathology. ESTIMATED BLOOD LOSS: Minimal. DESCRIPTION OF PROCEDURE: The patient was taken to the operating room. General anesthesia was induc ed. The patient was placed in the dorsal lithotomy position, prepped and draped in a sterile fashion . A 26-Armenian continuous flow resectoscope sheath with visual obturator was inserted through the pat ient's urethra into the patient's bladder. The resectoscope was then inserted. The patient had sign ificant cellular debris. The loop without current was used to gradually sweep all this cellular debr is off the bladder well. The bladder was more trabeculated than expected in an elderly female. Once most of the cellular debris had been irrigated away, the erythematous areas, the most prominent of w hich, were resected/deep tissue biopsied. Excellent hemostasis was achieved. All erythematous areas were then fulgurated. The tissue was sent for the above pathology. The bladder was drained. An 18 -Armenian 3-way Dubois catheter was inserted on gentle irrigation. The patient was returned to the supi ne position and was being prepared for extubation at the time of this dictation. COMPLICATIONS: None. DRAINS: 18-Armenian 3-way Dubois catheter. /[id number]/MODL
[2016-12-05] MEDS ORDERED: HYDROCODONE/APAP 5/325 TAB ONE (16:16)
[2016-12-05] MEDS: SENNOSIDES/DOCUSATE SODIUM TAB PO SCH ×2 (18:07→21:26)
[2016-12-05] MEDS: ESTROGENS,CONJUGATED 0.3 MG TAB PO SCH (18:08)
[2016-12-05] MEDS: LEVOTHYROXINE 112 MCG TAB PO SCH (18:08)
[2016-12-05] MEDS: INSULIN GLARGINE 100 UNITS/ML SYRINGE SC SCH (18:08)
[2016-12-05] MEDS: DULoxetine 30 MG CAP PO SCH (18:08)
[2016-12-06] MEDS: LORazepam 0.5 MG TAB PO PRN ×3 (04:07→22:41)
[2016-12-06 06:05] LABS: HEMATOCRIT 29.9 % (38.0-47.0); HEMOGLOBIN 9.4 g/dL (12.6-16.3); MEAN CELL HEMOGLOBIN 26.4 pg (27.9-34.1); MEAN CELL HEMOGLOBIN CONCENTR. 31.4 g/dL (32.4-36.7); RED BLOOD CELL COUNT 3.56 10^6/uL (4.18-5.33); RED CELL DISTRIBUTION WIDTH 15.9 % (11.5-15.2)
[2016-12-06 06:34] LABS: ANION GAP 11 mEq/L (8-16); CALCIUM 7.3 mg/dL (8.5-10.4); CARBON DIOXIDE 23 mEq/l (22-31); CHLORIDE 107 mEq/L (97-110); CREATININE 0.8 mg/dL (0.6-1.0); GLOMERULAR FILTRATION RATE > 60; GLUCOSE 136 mg/dL (70-100); POTASSIUM 4.1 mEq/L (3.5-5.2); SODIUM 141 mEq/L (134-144)
[2016-12-06] MEDS: INSULIN REGULAR HUMAN 100 UNIT/ML SC SCH ×4 (08:05→22:25)
[2016-12-06] MEDS: DULoxetine 30 MG CAP PO SCH (08:07)
[2016-12-06] MEDS: ESTROGENS,CONJUGATED 0.3 MG TAB PO SCH (08:07)
[2016-12-06] MEDS: LEVOTHYROXINE 112 MCG TAB PO SCH (08:08)
[2016-12-06] MEDS: ENOXAPARIN 40 MG/0.4 ML SYR SC SCH (08:08)
[2016-12-06] MEDS: HYDROCODONE/APAP 5/325 TAB PO PRN ×2 (08:14→22:41)
--- NOTE | 2016-12-06 09:34 | PCMIDPN ---
Assessment/Plan: Sepsis, unclear etiology presumed secondary to UTI; now s/p cystoscopy yesterday to evaluate for underlying pathology. Sepsis has now resolved with normalized white count. --follow up ID clinic Saturday12/14/[address] Huffman at 2:00 p.m. --dc tomorrow with 10 d of cefuroxime 500mg PO BID ( I sent electronically today ) --she has requests for several other meds, will defer to hospitalists. --continue with ceftriaxone until discharge. Discharge tomorrow does not depend on me rounding on Ms. Herrera prior. Time was 25 minutes with greater than 50% time spent with education counseling of the patient and her daughter regarding antibiotic therapy, plans for monitoring of culture and pathology results 12/06/16 17:23 Subjective: No specific complaints. States she is ready to go home tomorrow morning Objective: Vital Signs Temp Pulse Resp BP Pulse Ox 36.6 C 71 18 114/73 96 12/06/16 07:39 12/06/16 07:39 12/06/16 07:39 12/06/16 07:39 12/06/16 07:39 Microbiology 11/30/16 21:45 Blood Culture - Final Blood 12/05/16 14:45 Gram Stain - Final Other - Other 12/01/16 15:55 Urine Culture - Final Urine,Clean Catch Viktoriya Glabrata Laboratory Results 12/06/16 05:52 12/06/16 05:52 12/05/16 12/06/16 12/07/16 05:59 05:59 05:59 Intake Total 1540 Output Total 255 1200 Balance 1285 -1200 - Physical Exam General Appearance: alert, no apparent distress EENT: pale conjunctiva, No scleral icterus Respiratory: lungs clear Neck: supple Cardiac/Chest: regular rate, rhythm Abdomen: non-tender, soft Pelvic Exam: mcnally, other (No suprapubic pain) Skin: No rash Neuro/Psych: alert, normal mood/affect, oriented x 3, other (Pleasant and interactive) ICD10 Worksheet Patient Problems: Problems Problem Status Diagnosed Fall Acute Sepsis Acute Urinary tract infectious disease Acute
[2016-12-06] MEDS: INSULIN GLARGINE 100 UNITS/ML SYRINGE SC SCH (10:25)
--- NOTE | 2016-12-06 12:47 | HOSPPROG ---
Hospitalist Progress Note Assessment/Plan: #Severe sepsis: resolved #Recurrent UTI -E Coli resistant to Cipro on culture prior to admiison Appreciate ID consultation. - on CTX now. Discharge on cefuroxime 500mg BID x 10 days. (Rx sent in by Dr. Abarca). -Dr. Aceves did transurethral debridement 12/06; biopsy sent for pathology -FU with Dr. Huffman #Leukocytosis: improved with IV abx #Uncontrolled DM -cont glargine and SSI #Lactic acidosis -due to sepsis. Now resolved #Hypothyroidism -LT4 #Depression: cont home meds. She states takes PRN Cymbalta; unusual dose. Will not dose PRN #Chronic pain: due to OA. Will resume home dosage. She can FU with her PCP for dose titration. #Diet: diabetic #DVT ppx: LMWH #Disp: plan for DC tomorrow Subjective: agitated and not open to answering my questions this morning Objective: Vital Signs Temp Pulse Resp BP Pulse Ox 36.4 C 80 16 120/78 97 12/06/16 11:54 12/06/16 11:54 12/06/16 11:54 12/06/16 11:54 12/06/16 11:54 Microbiology 11/30/16 21:45 Blood Culture - Final Blood 12/05/16 14:45 Gram Stain - Final Other - Other 12/01/16 15:55 Urine Culture - Final Urine,Clean Catch Viktoriya Glabrata Laboratory Results 12/06/16 05:52 12/06/16 05:52 12/05/16 12/06/16 12/07/16 05:59 05:59 05:59 Intake Total 1540 Output Total 255 1200 Balance 1285 -1200 - Physical Exam Constitutional: chronically ill appearing Eyes: PERRL Ears, Nose, Mouth, Throat: moist mucous membranes, hearing normal Cardiovascular: regular rate and rhythym, no murmur, rub, or gallop Respiratory: no respiratory distress, no rales or rhonchi Gastrointestinal: normoactive bowel sounds, soft, non-tender abdomen, no palpable masses Genitourinary: no bladder fullness, mcnally in urethra Skin: warm Musculoskeletal: full muscle strength Neurologic: AAOx3 ICD10 Worksheet Patient Problems: Problems Problem Status Diagnosed Fall Acute Sepsis Acute Urinary tract infectious disease Acute
--- NOTE | 2016-12-06 12:48 | PDIAF ---
- Diagnosis Code Status: Do Not Resuscitate - Medication Management Discharge Medications: Medications to Continue on Transfer DULoxetine [Cymbalta 30 MG (*)] 30 mg PO DAILY 10/19/16 [Last Taken 11/30/16] Estrogens,Conjugated [Premarin 0.3 MG (*)] 0.3 mg PO DAILY 10/19/16 [Last Taken 11/30/16] Hydrocodone/Acetaminophen [[place] 5/325 (*)] 1 each PO BID 10/19/16 [Last Taken 11/30/16] LORazepam [Ativan (*)] 1 mg PO BID PRN 10/19/16 [Last Taken 10/18/16 18:00] Levothyroxine [Synthroid 112 mcg (*)] 112 mcg PO DAILY06 10/19/16 [Last Taken ] Lisinopril [Zestril 40 mg (*)] 40 mg PO DAILY 10/19/16 [Last Taken 11/30/16] Potassium Cl [Klor-Con 10 meq (RX)] 10 meq PO DAILY 10/19/16 [Last Taken ] metFORMIN HCL [Glucophage 500 mg (*)] 1,000 mg PO DAILY 10/22/16 [Last Taken 05/11] Acetaminophen [Tylenol 325mg (*)] 650 mg PO Q4HRS PRN #0 tab 10/23/16 [Last Taken Unknown] Discharge Medications: Refer to the Discharge Home Medication list for PRN reason. - Orders Services needed: Home Care, Registered Nurse, Certified Butting Saw Operator Home Care Face to Face: I certify that this patient was under my care and that I had the required [id number] encounter meeting the encounter requirements on the discharge day. My findings support the fact that the patient is homebound as defined in CMS Chapter 7 Medicare Benefits Manual 30.1.1, The condition of the patient is such that there exists a normal inability to leave home and consequently, leaving home would require a considerable and taxing effort. - Follow Up Care Current Providers and Referrals: Norris Huffman MD [Medical Doctor] - 12/14/16 Arian Hurtado MD [Primary Care Provider] - As per Instructions
[2016-12-06] MEDS: SENNOSIDES/DOCUSATE SODIUM TAB PO SCH ×2 (15:52→22:25)
[2016-12-07 05:23] LABS: ANION GAP 8 mEq/L (8-16); CALCIUM 7.5 mg/dL (8.5-10.4); CARBON DIOXIDE 27 mEq/l (22-31); CHLORIDE 107 mEq/L (97-110); CREATININE 0.8 mg/dL (0.6-1.0); GLOMERULAR FILTRATION RATE > 60; GLUCOSE 79 mg/dL (70-100); POTASSIUM 3.8 mEq/L (3.5-5.2); SODIUM 142 mEq/L (134-144)
[2016-12-07] MEDS: HYDROCODONE/APAP 5/325 TAB PO PRN ×2 (05:26→12:03)
[2016-12-07 07:24] VITALS: RESP 18; TEMP 98.1
[2016-12-07] MEDS: LEVOTHYROXINE 112 MCG TAB PO SCH (07:29)
[2016-12-07] MEDS: INSULIN REGULAR HUMAN 100 UNIT/ML SC SCH ×2 (07:50→12:25)
[2016-12-07] MEDS: DULoxetine 30 MG CAP PO SCH (09:38)
[2016-12-07] MEDS: ESTROGENS,CONJUGATED 0.3 MG TAB PO SCH (09:38)
[2016-12-07] MEDS: SENNOSIDES/DOCUSATE SODIUM TAB PO SCH (09:38)
[2016-12-07] MEDS: ENOXAPARIN 40 MG/0.4 ML SYR SC SCH (09:41)
[2016-12-07] MEDS: INSULIN GLARGINE 100 UNITS/ML SYRINGE SC SCH (09:41)
[2016-12-07 11:44] VITALS: BP 138/83; PULSE 78; O2SAT 94
[2016-12-07] MEDS: LORazepam 0.5 MG TAB PO PRN (12:14)
--- NOTE | 2016-12-08 03:35 | GDS ---
[f rep st] DISCHARGE SUMMARY DISCHARGE DIAGNOSES: 1. Recurrent urinary tract infection secondary to resistant Escherichia coli. 2. Uncontrolled diabetes mellitus. 3. Sepsis. 4. Hypothyroidism. 5. Depression. 6. Chronic pain secondary to osteoarthritis. HISTORY OF PRESENT ILLNESS: A 76-year-old female who presents on 12/01/2016 with complaints of weakn ess, dysuria, vomiting. CONSULTATIONS: Consultative services on this patient include Infectious Disease and Urology. PROCEDURES: On 12/05/2016 patient underwent transurethral debridement of biofilm and transurethral r esection of erythematous tissue. HOSPITAL COURSE: 1. Recurrent urinary tract infection secondary to resistant E coli. The patient underwent urologic intervention and bladder irrigation. On the day disposition patient's symptoms are markedly improved . She is on appropriate antibiotics. Transition to oral cephalosporin by Infectious Disease will be followed in the clinic in the outpatient setting. She has had her irrigation discontinued to be dis charged with her catheter. Follow in the outpatient setting with Dr. Aceves from Urology. The pat ient will be taking cefuroxime 500 mg twice daily for 10 days. She will follow in the outpatient inf ectious disease clinic. 2. Sepsis. This resolved with the treatment of her recurrent urinary tract infection. DISCHARGE MEDICATIONS: Please reference medication reconciliation printed on 12/07/2016. FOLLOWUP: 1. Outpatient Infectious Disease in the next 7-[address] Aceves in the next week to evaluate her Dubois catheter upon disposition. 3. With her primary care provider for ongoing management of her medical comorbidities. PENDING STUDIES: Pending studies at the time of this dictation include cultures from her intraoperat cameron urologic procedure which are pending at the time of her disposition. I spent greater than 30 minutes in the planning and coordination of this discharge. /[id number]/MODL
== END 2016-12-07 12:50 | disposition home health service (06) | DRG 854 ==
LOC: F3E 12-01 00:10
PROVIDERS: ADMIT Internal Medicine; ATTEND Internal Medicine
PROC: 0TBB8ZX Excision of Bladder, Via Natural or Artificial Opening Endoscopic, Diagnostic (ICD-10-PCS; principal; 2016-12-05 13:15)
PROC: 0TCB8ZZ Extirpation of Matter from Bladder, Via Natural or Artificial Opening Endoscopic (ICD-10-PCS; principal; 2016-12-05 13:15)
DX: A41.51 Sepsis due to Escherichia coli [E. coli] (principal); N39.0 Urinary tract infection, site not specified; F01.50 Vascular dementia, unspecified severity, without behavioral disturbance, psychotic disturbance, mood disturbance, and anxiety; E11.65 Type 2 diabetes mellitus with hyperglycemia; E03.9 Hypothyroidism, unspecified; G89.29 Other chronic pain; F32.9 Major depressive disorder, single episode, unspecified; I10 Essential (primary) hypertension; Z86.711 Personal history of pulmonary embolism; Z87.440 Personal history of urinary (tract) infections; Z66 Do not resuscitate
CPT/HCPCS: 96365; 97116-GP; 97161-GP; 97165-GO; 97535-GO; G8978-GP-CI; G8978-GP-CK; G8979-GP-CI; G8980-GP-CI; G8987-GO-CJ; G8988-GO-CI; J0690; J0696; J1100; J1170; J1450; J1650; J1815; J2001; J2250; J2405; J2543; J2704; J3010; J3490

== ENCOUNTER → 2017-01-30 | Outpatient (CLI) | payer OTHER, MEDICARE | LOC: BHFA 14:00 | PROVIDERS: ATTEND Internal Medicine Cardiovascular Disease | DX: R09.89 Other specified symptoms and signs involving the circulatory and respiratory systems (principal) ==

== ENCOUNTER 2017-01-31 15:14 | Emergency (ER) | payer OTHER, MEDICARE ==
--- NOTE | 2017-01-31 15:34 | UCPHY ---
H & P Patient Type: Established Chief Complaint Nursing Narrative: pt with RLE/R foot swelling/heat/redness. fears a blood clot. had PE in past. is on pradaxa. Time Seen by Provider: 01/31/17 15:20 HPI/ROS: This patient has new onset of right lower extremity swelling over the past few days. Patient reports no significant discomfort associated with this. However gullet slitter notes that the patient is having some difficulty ambulating recently in describes that to combination of leg pain, knee pain and decreased balance. Patient has a prior history of left lower extremity DVT with PE. She reports compliance with Pradaxa. She is sent down from Dr. Hurtado her primary care physician for rule out DVT in the right lower extremity due to new onset of swelling. ROS: No chest pain or shortness of breath. No acute injury to the leg She has some difficulty walking in recent months that her gullet slitter thinks is combination of decreased balance, musculoskeletal pain and swelling. 5 point ROS is otherwise negative Source: Patient, RN/MD (Patient's primary care physician Arian Hurtado sent the patient down for further evaluation of lower extremity swelling), Other (She is accompanied by a caregiver -Miley who gives more details about her history) Exam Limitations: Clinical condition (Patient seems to have moderate dementia.) - Personal History Tetanus Vaccine Date: allergic to tet - Medical/Surgical History Hx Asthma: No Hx Chronic Respiratory Disease: No Hx Diabetes: Yes Hx Cardiac Disease: Yes Hx Renal Disease: No Hx Cirrhosis: No Hx Alcoholism: No Hx HIV/AIDS: No Hx Splenectomy or Spleen Trauma: No Other PMH: depression, irreg heart rate, HTN, chronic UTI's, DM, hypothyroidism , HYSTERECTOMY, DVT, PE, MINI-STROKE - Family History Significant Family History: No pertinent family hx - Social History Smoking Status: Former smoker Alcohol Use: None Drug Use: None - Physical Exam Exam: Physical Exam Vital signs are normal. General: No acute distress HEENT: Atraumatic. Eyes: Pupils equal and react to light. Extraocular motions are intact. Lungs: No respiratory distress. Cardiac: Brisk capillary refill is intact throughout. Pulses are 2+ and symmetric in the affected extremity. Extremities: Patient has moderate right lower extremity edema throughout the lower leg and ankle extending to the foot. Minimal posterior calf tenderness. Homans is negative. No discoloration. No pallor. No venous engorgement is appreciated. Skin: No rash or pallor. Neuro: Alert with no sensorimotor deficits in the affected extremity. Initial differential diagnosis: Dependent edema, DVT. Allergies/Adverse Reactions: tetanus toxoid, adsorbed Allergy (Intermediate, Verified 01/31/17 15:21) local reaction morphine Allergy (Mild, Verified 01/31/17 15:21) Itching Home Medications: Medication Instructions Recorded DULoxetine [Cymbalta 30 MG (*)] 30 mg PO DAILY 10/19/16 Estrogens,Conjugated [Premarin 0.3 0.3 mg PO DAILY 10/19/16 MG (*)] Hydrocodone/Acetaminophen [[place] 1 each PO BID 10/19/16 5/325 (*)] LORazepam [Ativan (*)] 1 mg PO BID PRN 10/19/16 Levothyroxine [Synthroid 112 mcg 112 mcg PO DAILY06 10/19/16 (*)] Lisinopril [Zestril 40 mg (*)] 40 mg PO DAILY 10/19/16 Potassium Cl [Klor-Con 10 meq (RX)] 10 meq PO DAILY 10/19/16 metFORMIN HCL [Glucophage 500 mg 1,000 mg PO DAILY 10/22/16 (*)] Acetaminophen [Tylenol 325mg (*)] 650 mg PO Q4HRS PRN #0 tab 10/23/16 Cefuroxime Axetil [Cefuroxime] 500 mg PO BID #20 tablet 12/07/16 Pradaxa 01/31/17 Medical Decision Making - Diagnostics Imaging: Doppler ultrasound right lower extremity is negative for DVT per radiologist who reviewed the study. ED Course/Re-evaluation: The patient and/or her gullet slitter became impatient waiting for the results of the ultrasound and left without discharge instructions. Our nurse did notify them that the ultrasound was negative for DVT. Departure - Departure Disposition: Home, Routine, Self-Care Clinical Impression: Leg edema, right Condition: Good Instructions: Leg Edema (ED) Referrals: Arian Hurtado MD [Primary Care Provider] - As per Instructions - PQRS PQRS Measurement: PQRS not performed due to patient's premature departure
== END 2017-01-31 16:15 | disposition home or self-care (01) ==
LOC: CED 15:14
DX: R22.41 Localized swelling, mass and lump, right lower limb (principal); I10 Essential (primary) hypertension; E11.9 Type 2 diabetes mellitus without complications; E03.9 Hypothyroidism, unspecified; Z86.711 Personal history of pulmonary embolism; Z79.01 Long term (current) use of anticoagulants; Z86.718 Personal history of other venous thrombosis and embolism; Z87.440 Personal history of urinary (tract) infections
CPT/HCPCS: 93971; G0463; 99214-PO

== ENCOUNTER → 2017-02-19 | Outpatient (CLI) | payer OTHER, MEDICARE | LOC: FIMAGING 14:11 | PROVIDERS: ATTEND Internal Medicine | DX: G31.9 Degenerative disease of nervous system, unspecified (principal) ==